=== PATIENT | male | born 1945 | race Caucasian/White ===

== ENCOUNTER 2016-12-29 20:54 | Emergency (ER) | payer MEDICARE ==
[2016-12-29 21:10] VITALS: BP 140/90; PULSE 104; RESP 16; TEMP 97.6
[2016-12-29] MEDS ORDERED: IBUPROFEN 800 MG TAB PO STA (21:30)
--- NOTE | 2016-12-29 21:40 | ED ---
Lower Extremity Injury HPI - General Chief Complaint: Extremity Injury, Lower Stated Complaint: Fall-knee injury Time Seen by Provider: 12/29/16 21:16 Source: patient Mode of arrival: wheelchair Limitations: no limitations - History of Present Illness Initial Comments: 71-year-old male presents to the ER with his after sustaining a trip and fall outdoors while he was changing a filter in his outdoor water curtain. He states that he had carried a filter which had dropped some water on a mossy area in which he then slipped and believes he twisted his knee. He was then unable to bear weight on it. He reports that there is no injury to the foot ankle or hip on that side. He states that the pain is very localized on the outside of his knee up through his thigh. He states that he did not take anything for pain yet he came to the ER after not being able to bear weight on it. He did have a brace at home from a prior knee injury that he wore to help with immobilization. He also did apply ice on his way to the ER today. He states that no symptoms precipitated the fall and denies any dizziness, nausea, vomiting, blurry vision, chest pain, shortness of breath, diarrhea. Patient also denies any head trauma or loss of consciousness. He denies injury to any other areas of the body. - Related Data Home Medications Medication Instructions Recorded Confirmed Aspirin EC [Ecotrin Low Dose] 81 mg PO BID 12/29/16 12/29/16 Atorvastatin [Lipitor] 80 mg PO DAILY 12/29/16 12/29/16 Cholecalciferol [Vitamin D3] 1,000 unit PO DAILY 12/29/16 12/29/16 Famotidine 20 mg PO HS 12/29/16 12/29/16 Glimepiride [Amaryl] 4 mg PO AC-BID 12/29/16 12/29/16 Insulin Glargine,Hum.rec.anlog 22 unit SQ DAILY 12/29/16 12/29/16 [Lantus Solostar] Metoprolol Tartrate [Lopressor] 50 mg PO BID 12/29/16 12/29/16 Multivitamins, Thera [Multivitamin 1 tab PO DAILY 12/29/16 12/29/16 (formulary)] Ramipril [Altace] 5 mg PO HS 12/29/16 12/29/16 metFORMIN HCL 1,000 mg PO AC-BID 12/29/16 12/29/16 Allergies Allergy/AdvReac Type Severity Reaction Status Date / Time No Known Allergies Allergy Verified 12/29/16 21:47 Review of Systems ROS Statement: Those systems with pertinent positive or pertinent negative responses have been documented in the HPI. ROS Other: All systems not noted in ROS Statement are negative. Past Medical History Past Medical History: Diabetes Mellitus, Hyperlipidemia, Hypertension History of Any Multi-Drug Resistant Organisms: None Reported Past Surgical History: Cholecystectomy, Coronary Bypass/CABG, Heart Catheterization With Stent Past Psychological History: No Psychological Hx Reported Smoking Status: Never smoker Past Alcohol Use History: Occasional Past Drug Use History: None Reported General Exam Limitations: no limitations General appearance: alert, in no apparent distress Head exam: Present: atraumatic, normocephalic Eye exam: Present: normal appearance, PERRL, EOMI Pupils: Present: normal accommodation Respiratory exam: Present: normal lung sounds bilaterally Cardiovascular Exam: Present: regular rate, normal rhythm Extremities exam: Present: other (Left lower extremity: Patient is not able to passively move his left knee however actively I am able to produce full range of motion with moderate discomfort. He has negative valgus and varus stress tests. Anterior and posterior drawer tests were negative. No ecchymosis or edema. No evidence of effusion. Very minor abrasions on the anterior pham and knee. Patient has point tenderness on the lateral aspect of the knee up to the quadriceps muscle. No pain in the hip or the ankle. Full range of motion in these joints are able to be elicited.) Neurological exam: Present: alert, oriented X3, CN II-XII intact, other (Unable to bear weight on his left leg secondary to pain.) Psychiatric exam: Present: normal affect, normal mood Skin exam: Present: warm, dry Course Vital Signs 12/29/16 21:06 Temperature 97.6 F Pulse Rate 104 H Respiratory 16 Rate Blood Pressure 140/90 O2 Sat by Pulse 95 Oximetry Medical Decision Making - Medical Decision Making A 71-year-old male presents to the ER after sustaining a fall outside. He states that there was a twisting motion and that the injury did not come from a direct blow to the knee. He states that he has localized pain on the lateral aspect of the knee. Based on inability to bear weight and point tenderness we' ll recommend x-ray to evaluate for fracture and possible avulsion. X-ray showed negative for any acute processes including fracture, joint effusion, avulsion. There do appear to be some chronic changes. Discussed with the patient that x-rays do not show ligament tendon or meniscus injuries and will recommend ortho follow-up. Patient was given Motrin 800 to help with inflammation and discomfort in the ER. Patient deferred any prescription pain medication and will take [id number] Tylenol and Motrin at home to help control pain. Knee immobilizer was placed back on the patient he was encouraged to use crutches, walker or cane at home in which she has all 3 already. Discussed fall risk with having knee pain injury. Recommend rest ice compression and elevation. All questions were answered. Patient agreeable with treatment plan and voiced understanding. - Radiology Data Radiology results: report reviewed (No acute processes including fracture, avulsion. 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 To return to the ER with any worsening or new symptoms or concerns. Referrals: Marek Wright MD [Primary Care Provider] - 1-2 days Trav Cottrell MD [STAFF PHYSICIAN] - 1-2 days Time of Disposition: 22:25
--- NOTE | 2016-12-29 22:01 | XR ---
EXAMINATION TYPE: XR knee complete LT DATE OF EXAM: 12/29/2016 9:57 PM COMPARISON: NONE HISTORY: Knee pain TECHNIQUE: 3 views FINDINGS: I see no fracture nor dislocation. There is calcification above the patella. There is spurr ing on the patella. There is vascular calcification. 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 No fracture. Mild degenerative spurring.
== END 2016-12-29 23:00 | disposition home or self-care (01) ==
LOC: EC 20:54
DX: S83.92XA Sprain of unspecified site of left knee, initial encounter (principal); E11.9 Type 2 diabetes mellitus without complications; E78.5 Hyperlipidemia, unspecified; I10 Essential (primary) hypertension; Z79.82 Long term (current) use of aspirin; Z79.899 Other long term (current) drug therapy; Z79.4 Long term (current) use of insulin; W01.0XXA Fall on same level from slipping, tripping and stumbling without subsequent striking against object, initial encounter
CPT/HCPCS: 99283

== ENCOUNTER → 2018-05-28 | Outpatient (CLI) | payer MEDICARE ==
[2018-05-28 11:13] LABS: HCT 45.2 % (39.0-53.0); HGB 15.3 gm/dL (13.0-17.5); MCH 29.9 pg (25.0-35.0); MCHC 33.9 g/dL (31.0-37.0); MCV 88.2 fL (80.0-100.0); Mean Platelet Volume 7.3; Platelet Count 222 k/uL (150-450); RBC 5.12 m/uL (4.30-5.90); RDW 14.3 % (11.5-15.5); WBC 6.1 k/uL (3.8-10.6)
[2018-05-28 11:22] LABS: Anion Gap 8 mmol/L; Blood Urea Nitrogen 16 mg/dL (9-20); Carbon Dioxide 27 mmol/L (22-30); Chloride 106 mmol/L (98-107); Potassium 4.9 mmol/L (3.5-5.1); Sodium 141 mmol/L (137-145)
== END | disposition home or self-care (01) ==
LOC: LABPAT 09:36
PROVIDERS: ATTEND Internal Medicine Interventional Cardiology
DX: Z01.812 Encounter for preprocedural laboratory examination (principal); I25.2 Old myocardial infarction; I10 Essential (primary) hypertension; E78.2 Mixed hyperlipidemia; R94.39 Abnormal result of other cardiovascular function study
CPT/HCPCS: 36415; 80051; 82565; 84520; 85027

== ENCOUNTER 2018-06-09 09:32 | Day surgery (SDC) | payer MEDICARE ==
[2018-06-03 10:59] VITALS: BMI 25.6
[~2018-06-09 09:32] MED LIST: ALPRAZolam 0.25 MG TAB PO PRN; ALPRAZolam 0.5 MG TAB PO PRN; ASPIRIN 325 MG TAB PO STA; ATORVASTATIN 80 MG TAB PO STA; NITROGLYCERIN SL TABS 0.4 MG TAB SUBLINGUAL PRN; SODIUM CHLORIDE 0.9% 1,000 ML in EMPTY BAG 1 BAG IV ONE
[2018-06-09 09:56] LABS: Glucose,Whole Blood 194 mg/dL (75-99)
[2018-06-09] MEDS ORDERED: diphenhydrAMINE 50 MG/ML 1 ML VIAL ONE (10:45)
[2018-06-09] MEDS ORDERED: MIDAZOLAM 2 MG/2 ML VIAL ONE (10:45)
[2018-06-09] MEDS ORDERED: diphenhydrAMINE 50 MG/ML 1 ML VIAL IVP ONE (11:03)
[2018-06-09] MEDS: MIDAZOLAM 2 MG/2 ML VIAL IVP ONE ×2 (11:03→11:10)
[2018-06-09] MEDS ORDERED: LIDOCAINE 1% INJ 10MG/ML (20 ML MDV) SQ ONE (11:10)
[2018-06-09] MEDS ORDERED: IOPAMIDOL-370 100ML BTL INJ ONE ×2 (11:35→12:22)
[2018-06-09] MEDS ORDERED: BIVALIRUDIN 250 MG in SODIUM CHLORIDE 0.9% 50 ML IV ONE ×2 (11:38→12:37)
[2018-06-09] MEDS ORDERED: BIVALIRUDIN BOLUS 250 MG/50 ML IV ONE (11:38)
[2018-06-09] MEDS: NITROGLYCERIN 1000MCG/10ML SYRINGE INTRACORON ONE ×2 (12:31→12:38)
[2018-06-09] MEDS ORDERED: IOPAMIDOL-370 50ML BTL INJ ONE (12:40)
[2018-06-09] MEDS ORDERED: MORPHINE SULFATE 4 MG/ML SYRINGE ONE (12:43)
[2018-06-09] MEDS ORDERED: MORPHINE SULFATE 4 MG/ML SYRINGE IVP ONE (12:44)
[2018-06-09] MEDS ORDERED: TICAGRELOR 90 MG TAB ONE (12:45)
[2018-06-09] MEDS ORDERED: TICAGRELOR 90 MG TAB PO ONE (12:46)
[2018-06-09] MEDS ORDERED: NITROGLYCERIN SL TABS 0.4 MG TAB SUBLINGUAL PRN (12:53)
[2018-06-09] MEDS ORDERED: MAG HYDROX/AL HYDROX/SIMETH 30 ML CUP PO PRN (12:53)
[2018-06-09] MEDS ORDERED: ATROPINE SULFATE 0.1 MG/ML 10ML SYRINGE IV PRN (12:53)
[2018-06-09] MEDS ORDERED: ZOLPIDEM 5 MG TAB PO PRN (12:53)
[2018-06-09] MEDS ORDERED: RX INFO: IV CONTRAST WAS GIVEN 1 EACH MISC MISCELLANE PRN (12:53)
[2018-06-09] MEDS: SODIUM CHLORIDE 0.9% 1,000 ML IV SCH (14:00)
--- NOTE | 2018-06-09 16:19 | CC ---
CARDIAC CATHETERIZATION REPORT DATE OF PROCEDURE: PROCEDURE: 1. Left heart catheterization, coronary angiography and selective injection of bypass grafts. 2. Percutaneous transluminal coronary angioplasty and stenting of a totally occluded second obtuse marginal branch of circumflex. Two drug-eluting stents were deployed. Moderate conscious sedation time was 107 minutes. CLINICAL INFORMATION: Mr. Marques Bassett is a 72-year-old gentleman with a known history of type 2 diabetes, hypertension, hyperlipidemia, CAD with a previous anterior as well as inferior ID. In 1990 he underwent aortocoronary bypass surgery with a ACOSTA to LAD and a vein graft to the diagonal. Subsequently he had inferior ID, underwent stenting of RCA and later on had circumflex marginal stenting performed in 2005. The second obtuse marginal in the midportion was stented. He did well for several years, but in 2007 I performed stenting of the distal left main and proximal circumflex as well as the proximal portion of the second obtuse marginal branch of circumflex. At that time the first obtuse marginal was jailed and had still a decent flow with a significant stenosis, but this was not addressed. He did well until recently and had a significantly abnormal stress test with lateral wall ischemia and therefore was advised a repeat cardiac catheterization and possible intervention. PROCEDURE NOTE: Under local anesthesia and strict aseptic precautions, a 6-Ecuadorean introducer was placed in the right femoral artery. Using a standard left Kayla and a Gera catheter , I performed selective coronary angiography of the sioux coronary arteries and also the left internal mammary artery graft. Using an AR2 catheter, I performed selective coronary angiography of the vein graft to the diagonal. Subsequently, using a pigtail, I checked LV pressures. I noted that he had a significant lesion in the circumflex marginal which was stented before, and this was totally occluded. I performed intervention of this vessel in the same setting. PCI PROCEDURE DETAILS: I used a standard left Kayla guide catheter to cannulate the left coronary artery. I used a Whisper straight wire and I crossed the total occlusion after some manipulation. I made sure I was in the true lumen. Wire was kept distally. I tried to use a 2.5 balloon without success. I then used a 1.56 mm balloon, and with this I was able to cross the total occlusion. I gave multiple inflations with this small balloon and then I switched over to a 2.5 caliber 12 mm Trek balloon. With this I gave multiple inflations within the total occluded segment of the second obtuse marginal. I then deployed a 12 mm 2.5 caliber stent distal to the total occlusion and telescoped another 18 mm stent into the total occlusion as well as into the previously placed stent. Basically, the mid portion that was stented as well as an ostial portion of the circumflex marginal that was stented were both connected with 2 new stents; 2.5 caliber stents were used. I used then a 2.75 caliber NC Trek balloon and I gave high inflations up to 16 atmospheres. The patient had an excellent angiographic result. There was a remarkably good angiographic appearance and flow. I then made one attempt to cross the first obtuse marginal which was jailed, but I could not advance the balloon. I did not persist since there was a TANI-3 flow in the obtuse marginal branch of circumflex. Excellent angiographic result was achieved. The sheath was taken out and a Perclose device used to secure hemostasis and he was sent to the room in a stable condition. The patient received 180 mg of Brilinta and he also received Angiomax bolus and infusion as per protocol. Results were discussed with the patient's family , and I expect he will be discharged tomorrow if he remains stable. CARDIAC CATHETERIZATION FINDINGS: RIGHT CORONARY ARTERY: This vessel is totally occluded and seen as a stump with a very limited antegrade flow. This is known to be a total occlusion from a previous cardiac catheterization. LEFT MAIN CORONARY ARTERY: Short patent vessel that bifurcates into LAD and circumflex. No significant disease in the left main. The distal portion of the left main and the proximal circumflex that was stented is widely patent. LEFT ANTERIOR DESCENDING CORONARY ARTERY: This vessel is totally occluded, seen as a stump. LEFT POSTERIOR CIRCUMFLEX CORONARY ARTERY: The first obtuse marginal was jailed with an ostial stent and there is still decent flow, but there is a lesion of 70% to 80% in the first obtuse marginal. Small-caliber vessel of about 2.25 mm diameter, unchanged however from a previous study of 2007. The second obtuse marginal which was stented in the proximal and mid portion is now totally occluded without any antegrade flow. The continuation of circumflex in the AV groove and distal posterolateral branch are free of significant disease. There is a fair network of collaterals going to the distal RCA as well from the circumflex system. The obtuse marginal branch which was stented before, which is a second obtuse marginal, is now totally occluded and is 100% occluded with some calcification. LEFT INTERNAL MAMMARY ARTERY GRAFT TO LAD: This graft is widely patent with a decent flow. No significant disease is noted in the LAD and it runs all the way to the apex and supplies a sizable amount of myocardium. No significant disease is noted in the entire LAD system. SAPHENOUS VEIN GRAFT TO THE DIAGONAL BRANCH OF LAD: This graft has no significant disease. This graft is large in caliber. There is a mismatch in size but anastomosis is free of significant disease. The diagonal branch is free of significant disease and it also goes back and fills the LAD, which sees some competitive flow. There is mild disease in the graft, but no significant stenosis is noted. This patient has a total occlusion of second obtuse marginal that was dilated. The two grafts, the ACOSTA and a vein graft to the diagonal, are patent. RCA is totally occluded. Filling pressures are acceptable. I proceeded to perform intervention of the second obtuse marginal branch of circumflex. PCI PROCEDURE RESULTS: Excellent angiographic result was achieved. Two drug-eluting stents were deployed. Results were discussed with the patient and family, and I expect he will be discharged tomorrow. A Perclose device was used to secure hemostasis. MMODL / IJN: [id number] / PATRIA
[2018-06-09 17:13] LABS: Glucose,Whole Blood 151 mg/dL (75-99)
[2018-06-09] MEDS: GLIMEPIRIDE 4 MG TAB PO SCH (17:27)
[2018-06-09] MEDS: METOPROLOL TARTRATE 50 MG TAB PO SCH (19:45)
[2018-06-09] MEDS ORDERED: FAMOTIDINE 20 MG TAB PO SCH (21:00)
[2018-06-09] MEDS ORDERED: LISINOPRIL 20 MG TAB PO SCH (21:00)
[2018-06-10] MEDS: SODIUM CHLORIDE 0.9% 1,000 ML IV SCH (03:56)
[2018-06-10 04:16] LABS: Basophils % (A) 1 %; Eosinophils # (A) 0.2 k/uL (0-0.7); Eosinophils % (A) 2 %; HCT 43.6 % (39.0-53.0); HGB 14.7 gm/dL (13.0-17.5); Lymphocytes # (A) 1.2 k/uL (1.0-4.8); Lymphocytes % (A) 16 %; MCH 30.4 pg (25.0-35.0); MCHC 33.8 g/dL (31.0-37.0); MCV 89.9 fL (80.0-100.0); Mean Platelet Volume 7.4; Monocytes # (A) 0.5 k/uL (0-1.0); Monocytes % (A) 7 %; Neutrophils # (A) 5.2 k/uL (1.3-7.7); Neutrophils % (A) 71 %; Platelet Count 190 k/uL (150-450); RBC 4.85 m/uL (4.30-5.90); RDW 14.1 % (11.5-15.5); WBC 7.3 k/uL (3.8-10.6)
[2018-06-10 04:24] LABS: Anion Gap 6 mmol/L; Blood Urea Nitrogen 16 mg/dL (9-20); Calcium 9.3 mg/dL (8.4-10.2); Carbon Dioxide 26 mmol/L (22-30); Chloride 107 mmol/L (98-107); Glucose 120 mg/dL (74-99); Potassium 4.1 mmol/L (3.5-5.1); Sodium 139 mmol/L (137-145)
[2018-06-10] MEDS: GLIMEPIRIDE 4 MG TAB PO SCH (06:47)
[2018-06-10 06:52] LABS: Glucose,Whole Blood 141 mg/dL (75-99)
[2018-06-10] MEDS: METOPROLOL TARTRATE 50 MG TAB PO SCH (07:54)
[2018-06-10 08:32] VITALS: BP 126/65; PULSE 72; RESP 18; TEMP 98
[2018-06-10] MEDS ORDERED: CHOLECALCIFEROL 1,000 UNIT TAB PO SCH (09:00)
[2018-06-10] MEDS ORDERED: ASPIRIN 81 MG PO SCH ×2 (09:00)
[2018-06-10] MEDS ORDERED: MULTIVITAMINS, THERA 1 EACH TAB PO SCH (09:00)
[2018-06-10] MEDS ORDERED: ATORVASTATIN 80 MG TAB PO SCH (09:00)
[2018-06-10] MEDS ORDERED: INSULIN DETEMIR 100 UNIT/ML 10 ML VIAL SQ SCH (09:00)
[2018-06-10] MEDS ORDERED: TICAGRELOR 90 MG TAB PO SCH (09:00)
--- NOTE | 2018-06-10 09:32 | DS ---
DISCHARGE SUMMARY DATE OF ADMISSION: 06/09/2018. DATE OF DISCHARGE: 06/10/2018. DIAGNOSES: 1. Unstable angina. 2. Hypertension. 3. Type 2 diabetes. 4. History of prior aortocoronary bypass surgery and multivessel PCI. Mr. Marques Bassett was brought in electively for a cardiac cath in view of an abnormal stress test. Cardiac cath revealed that his 2 grafts, one was a ACOSTA artery to LAD, the other was a vein graft to the diagonal were both patent. He had progression of disease in the obtuse marginal branch of circumflex, which was now totally occluded. He had stenting of this performed initially in 1995 in the midportion and in the proximal portion in 2007. The ostium of the circumflex and distal left main were widely patent. RCA was totally occluded. Collaterals are coming from the left system. I performed intervention of the totally occluded circumflex marginal and placed two drug-eluting stents with excellent angiographic result. PROCEDURE: Postprocedure course was uneventful. He was evaluated by me this morning. His blood pressure is 120/70, pulse rate is 70 per minute. S1-S2 heard normally. Lungs are clear. Abdomen and lower extremity exam is unchanged. Right groin is clean and dry with excellent hemostasis. EKG revealed sinus mechanism with inferior nondiagnostic Q-waves. Patient is known to have a prior inferior MN. His laboratory data were excellent. I reviewed with him all the discharge instructions including diet, activity and medications. He will go home on the same medications except his aspirin will be reduced from 81 mg b.i.d. to once a day and I am adding Brilinta 90 mg b.i.d. These prescriptions were provided and patient will be discharged today and I will see him in the office on Friday at 4 pm. PROCEDURES PERFORMED ON THIS ADMISSION:: 1. Coronary angiography and selective injection of bypass graft. 2. PTCA and stenting of second obtuse marginal branch of circumflex which was totally occluded with two drug-eluting stents and excellent angiographic result was achieved. MMODL / IJN: [id number] /
--- NOTE | 2018-06-11 18:06 | CONS ---
CONSULTATION CHIEF COMPLAINT: Abnormal stress echo. HISTORY OF PRESENT ILLNESS: This is another admission for this 72-year-old white male has history of coronary artery disease, diabetes and hypertension, who has been very fastidious about taking care of his disease. He recently went in and had a routine stress study which indicated reversible wall abnormality. He has been having absolutely no chest pain. The only complaints that he makes is that, in retrospect, he has been feeling more fatigued. REVIEW OF SYSTEMS: He has had no TIAs, neurologic problems, change in vision or hearing, chest pain, palpitations, orthopnea, uncontrolled hypertension, abdominal pain, melena, hematochezia, jaundice, renal failure, etc. Past medical history, family history personal and social histories can all be found in his admitting summary. PHYSICAL EXAMINATION: Blood pressure is 142/81 with a pulse of 59, respirations of 10. He is afebrile. In general, he appeared well developed, well nourished, no acute distress. Skin color is normal. Skin is warm, dry. Head, ears, eyes, nose, mouth, and throat were normal and carotids normal. Chest is clear. Cardiac exam is normal, sinus rhythm and no murmurs or extra sounds. Abdomen is soft, nontender without visceromegaly or masses. Extremities: Normal. Neurologic was intact. IMPRESSION: 1. Abnormal stress echo. 2. Type 2 diabetes mellitus. 3. Coronary artery disease. 4. Atherosclerotic cardiovascular disease. 5. Hyperlipidemia. RECOMMENDATIONS: None at this time. Pending the outcome of his study, he may require medication changes. MMODL / IJN: [id number] /
== END 2018-06-10 08:32 | disposition home or self-care (01) ==
LOC: CATHCVL 09:32 → 3SCARD 13:05 → CATHCVL 06-10 08:32
PROVIDERS: ATTEND Internal Medicine Interventional Cardiology
DX: I25.110 Atherosclerotic heart disease of native coronary artery with unstable angina pectoris (principal); E11.9 Type 2 diabetes mellitus without complications; E78.2 Mixed hyperlipidemia; I10 Essential (primary) hypertension; R94.39 Abnormal result of other cardiovascular function study; I25.2 Old myocardial infarction; Z95.1 Presence of aortocoronary bypass graft; T82.855A Stenosis of coronary artery stent, initial encounter; I25.82 Chronic total occlusion of coronary artery; Z79.82 Long term (current) use of aspirin; Z79.4 Long term (current) use of insulin; Z79.899 Other long term (current) drug therapy; Z95.5 Presence of coronary angioplasty implant and graft
CPT/HCPCS: 93459; 80048; 85025; C9604; C1769 ×3; C1887; C1725 ×5; C1894; C1760; C1874; J2250; J2270; J1200; J2001; J0583; Q9967 ×2

== ENCOUNTER → 2018-06-15 | Outpatient (CLI) | payer MEDICARE ==
[2018-06-16 03:53] LABS: Anion Gap 7.3 mmol/L (4.00-12.00); Calcium 9.6 mg/dL (8.7-10.3); Carbon Dioxide 26.7 mmol/L (21.6-31.8); Potassium 4.5 mmol/L (3.5-5.5)
== END | disposition home or self-care (01) ==
LOC: LABWHC1 17:13
PROVIDERS: ATTEND Internal Medicine Interventional Cardiology
DX: I25.10 Atherosclerotic heart disease of native coronary artery without angina pectoris (principal); E11.9 Type 2 diabetes mellitus without complications
CPT/HCPCS: 36415; 80048

== ENCOUNTER → 2019-09-13 | Outpatient (CLI) | payer MEDICARE ==
[2019-09-13 16:18] LABS: Chol/HDL Ratio 4.71; LDL Cholesterol,Calculated 91.6 mg/dL (0.0-131.0); VLDL Calculation 34.4 mg/dL (5.00-40.00)
== END | disposition home or self-care (01) ==
LOC: LABWHC1 09:23
PROVIDERS: ATTEND Internal Medicine Interventional Cardiology
DX: I25.10 Atherosclerotic heart disease of native coronary artery without angina pectoris (principal); E78.5 Hyperlipidemia, unspecified
CPT/HCPCS: 36415; 80061; 82550; 84450; 84460

== ENCOUNTER → 2020-09-06 | Outpatient (CLI) | payer MEDICARE | END | disposition home or self-care (01) | LOC: RADCTMAIN 07:25 | PROVIDERS: ATTEND Urology | DX: C61 Malignant neoplasm of prostate (principal) | CPT/HCPCS: 82565; 84520 ==

== ENCOUNTER → 2020-09-06 | Outpatient (CLI) | payer MEDICARE ==
--- NOTE | 2020-09-06 10:11 | CT ---
EXAMINATION TYPE: CT abdomen pelvis w con DATE OF EXAM: 09/06/2020 COMPARISON: CT abdomen and pelvis April 14, 2013 HISTORY: Prostate cancer CT DLP: 1325 mGycm, Automated Exposure Control for Dose Reduction was Utilized. CONTRAST: CT scan of the abdomen and pelvis is performed with oral and with IV Contrast, patient injected with 100 mL of Isovue 300. FINDINGS: LUNG BASES: Mild bibasilar linear scarring and/or atelectasis. Partial visualization of inferior ster nal wires. LIVER/GB: Interval cholecystectomy. Visualized liver heterogeneously hypodense consistent with diffus e fatty infiltration. Punctate hypodense lesion left hepatic lobe image 16 too small to further ciaran cterize PANCREAS: No significant abnormality is seen. SPLEEN: No significant abnormality is seen. ADRENALS: No significant abnormality is seen. KIDNEYS: Symmetric cortical medullary uptake and excretion without hydronephrosis seen bilaterally. P rominent simple appearing central parapelvic cysts redemonstrated bilaterally. Bladder shows suboptim al distention with moderate concentric wall thickening. BOWEL: Oral contrast reaches level of the cecum. No suspicious small or large bowel dilatation. Moder ate prominence of fecal material in the right colon. Some scattered colonic diverticula. No CT eviden ce for acute diverticulitis. PROSTATE/SEMINAL VESICLES: Slightly enlarged prostate gland bulging on bladder base with central calc ification. LYMPH NODES: No greater than 1cm abdominal or pelvic lymph nodes are appreciated. OSSEOUS STRUCTURES: Bilateral pars defect L5 level redemonstrated. New slight grade 1 anterolisthesis L5 on S1. Moderate disc space narrowing and vacuum disc phenomenon. There is fairly moderate narrowi ng and mild to moderate spurring in both hip joints. OTHER: There is redemonstration of calcific focus in the right pelvis now measuring 2.2 cm with surro unding soft tissue slightly larger from prior seen image [address] currently and on prior CT. There is a pos terior ovoid 1.3 cm calculus axial image 79 redemonstrated that is stable. Lesions of uncertain etiol ogy, they are presumed benign. Moderate to severe calcified plaque in the abdominal aorta extends int o branch vessels. IMPRESSION: Enlarged prostate consistent with BPH. Evidence of bladder outlet obstruction with modera te concentric wall thickening. No suspicious new mass or adenopathy to suggest metastatic neoplasm fr om prostate cancer.
--- NOTE | 2020-09-06 10:28 | XR ---
EXAMINATION TYPE: XR chest 2V DATE OF EXAM: 09/06/2020 COMPARISON: None INDICATION: Prostate cancer TECHNIQUE: Frontal and lateral views of the chest are obtained. FINDINGS: The heart size is normal. Sternotomy wires are present from prior CABG. The pulmonary vasculature is normal. The lungs are clear. Osseous structures are unremarkable. No suspicious lytic or sclerotic lesions a re identified. IMPRESSION: 1. No acute pulmonary process.
--- NOTE | 2020-09-06 13:19 | NM ---
EXAMINATION TYPE: NM bone scan whole body DATE OF EXAM: 09/06/2020 COMPARISON: NONE HISTORY: Prostate cancer Delayed whole-body scanning was performed following the injection of 25.3 mCi Tc 99m MDP. Images wer e acquired 3 hours post injection. FINDINGS: There is a focus of radiotracer accumulation within the region of the posterior right T6 pedicle. Met astatic lesion this level is not excluded. Additional punctate area is just lateral to the right post erior sacroiliac joint within the right iliac wing. There is some uptake within the costal vertebral junction of T7 on the left more likely related to de generative change. IMPRESSION: 1. Two foci of possible metastatic disease. This would include the medial right iliac wing in the reg ion of the right posterior T6 pedicle.
== END | disposition home or self-care (01) ==
LOC: RADXRMAIN 07:34
PROVIDERS: ATTEND Urology
DX: N40.0 Benign prostatic hyperplasia without lower urinary tract symptoms (principal); N32.0 Bladder-neck obstruction; N32.89 Other specified disorders of bladder; C61 Malignant neoplasm of prostate
CPT/HCPCS: 71046; 74177; 36415; 78306; A9503; Q9967

== ENCOUNTER 2020-10-19 07:22 | Day surgery (SDC) | payer MEDICARE ==
[2020-10-13 13:23] VITALS: BMI 25.0
--- NOTE | 2020-10-16 20:19 | P.GSHP ---
History of Present Illness H&P Date: 10/16/20 75 yo male with a G7 t2c ca p, 04/29 biopsies positive. Psa 7.6 Prostate size 18ml who has chosen ebrt +lhrh theray for his cancer. He has received 240 mg leupron He comes for [employer] prior to ebrt. - Constitutional Constitutional: Denies chills, Denies fever - EENT Eyes: denies blurred vision, denies pain Ears, nose, mouth and throat: Denies headache, Denies sore throat - Cardiovascular Cardiovascular: Denies chest pain, Denies shortness of breath - Respiratory Respiratory: Denies cough, Denies 7 - Gastrointestinal Gastrointestinal: Denies abdominal pain, Denies diarrhea, Denies nausea, Denies vomiting - Genitourinary (Female) Genitourinary: Denies dysuria, Denies hematuria - Genitourinary (Male) Genitourinary: Denies dysuria, Denies hematuria - Musculoskeletal Musculoskeletal: Denies myalgias - Integumentary Integumentary: Denies pruritus, Denies rash - Neurological Neurological: Denies numbness, Denies weakness - Psychiatric Psychiatric: Denies anxiety, Denies depression - Endocrine Endocrine: Denies fatigue, Denies weight change Past Medical History Past Medical History: Coronary Artery Disease (CAD), Cancer, Diabetes Mellitus, Hyperlipidemia, Hypertension, Myocardial Infarction ([place]), Prostate Disorder Additional Past Medical History / Comment(s): [place] x2. Prostate cancer Last Myocardial Infarction Date:: 1993 History of Any Multi-Drug Resistant Organisms: None Reported Past Surgical History: Cholecystectomy, Coronary Bypass/CABG, Heart Catheterization With Stent, Orthopedic Surgery Additional Past Surgical History / Comment(s): LEFT KNEE QUADRICEP REPAIR, FLORIAN CATARACTS, CABG X4 1987. PTCA w/ 9 stents. Past Anesthesia/Blood Transfusion Reactions: Previous Problems w/ Anesthesia Additional Past Anesthesia/Blood Transfusion Reaction / Comment(s): HARD TIME WAKING UP AFTER CHOLECYSTECTOMY Date of Last Stent Placement:: 06/09/2018 Smoking Status: Never smoker - Past Family History Mother Family Medical History: No Reported History Medications and Allergies Home Medications Medication Instructions Recorded Confirmed Type Atorvastatin [Lipitor] 80 mg PO DAILY 12/29/16 10/13/20 History Cholecalciferol [Vitamin D3] 5,000 unit PO DAILY 12/29/16 10/13/20 History Insulin Glargine,Hum.rec.anlog 60 unit SQ QAM 12/29/16 10/13/20 History [Lantus Solostar] Metoprolol Tartrate [Lopressor] 50 mg PO BID 12/29/16 10/13/20 History Multivitamins, Thera [Multivitamin 1 tab PO DAILY 12/29/16 10/13/20 History (formulary)] metFORMIN HCL 1,000 mg PO AC-BID 12/29/16 10/13/20 History ramipriL [Altace] 5 mg PO HS 12/29/16 10/13/20 History Aspirin [Adult Low Dose Aspirin EC] 81 mg PO DAILY #30 tablet.dr 06/10/18 10/13/20 Rx Clopidogrel [Plavix] 75 mg PO DAILY 10/13/20 10/13/20 History Cyanocobalamin (Vitamin B-12) 5,000 mcg PO DAILY 10/13/20 10/13/20 History [Vitamin B-12] Exenatide Microspheres [Bydureon 2 mg SQ MO 10/13/20 10/13/20 History Pen] Ezetimibe [Zetia] 10 mg PO HS 10/13/20 10/13/20 History Zinc 50 mg PO DAILY 10/13/20 10/13/20 History Allergies Allergy/AdvReac Type Severity Reaction Status Date / Time No Known Allergies Allergy Verified 10/13/20 12:53 Surgical - Exam - General well developed, well nourished, no distress - Eyes PERRL - ENT no hearing loss - Neck trachea midline - Respiratory normal expansion, normal respiratory effort - Cardiovascular Rhythm: regular - Abdomen Abdomen: soft, non tender - Genitourinary normal penis with no external lesions, testicles present - Integumentary no rash, no growths - Neurologic normal coordination, normal sensation - Musculoskeletal normal gait, normal posture - Psychiatric oriented to time, oriented to person, oriented to place, speech is normal, memory intact Assessment and Plan Assessment: Impression: t2c n0mo g7 cap Plan: [facility] periprostatic injection
[~2020-10-19 07:22] MED LIST changes: -ALPRAZolam 0.25 MG TAB PO PRN; -ALPRAZolam 0.5 MG TAB PO PRN; -ASPIRIN 325 MG TAB PO STA; -ATORVASTATIN 80 MG TAB PO STA; +HYDROmorphone 0.5 MG/0.5 ML SYRINGE IVP PRN; +LACTATED RINGERS 1,000 ML IV SCH; +LIDOCAINE 1% (10MG/ML) FOR IV START INTRADERMA PRN; -NITROGLYCERIN SL TABS 0.4 MG TAB SUBLINGUAL PRN; +ONDANSETRON 4 MG/2 ML VIAL IVP PRN; -SODIUM CHLORIDE 0.9% 1,000 ML in EMPTY BAG 1 BAG IV ONE
[2020-10-19 08:10] LABS: Glucose,Whole Blood 206 mg/dL (75-99)
[2020-10-19] MEDS ORDERED: INSULIN ASPART (NovoLOG) 100 UNIT/ML VIAL SQ ONE (08:16)
[2020-10-19] MEDS ORDERED: DEXAMETHASONE SOD PHOSPHATE 4 MG/ML 1 ML VIAL IVP ONE (08:16)
[2020-10-19] MEDS ORDERED: MIDAZOLAM 2 MG/2 ML VIAL ONE (08:52)
[2020-10-19] MEDS ORDERED: PROPOFOL 10 MG/ML 20 ML VIAL IV ONE (08:52)
[2020-10-19] MEDS ORDERED: fentaNYL (PF) 50 MCG/ML 2 ML AMP ONE (08:52)
[2020-10-19] MEDS ORDERED: LIDOCAINE 2% INJ 20 MG/ML SQ ONE ×2 (09:11)
[2020-10-19 09:37] VITALS: RESP 16; TEMP 98
--- NOTE | 2020-10-19 09:37 | P.OP ---
Date of Procedure: 10/19/20 Preoperative Diagnosis: Adenocarcinoma of the prostate Postoperative Diagnosis: Same Procedure(s) Performed: [employer] Implant Anesthesia: JOSÉA Surgeon: Jake Gilbert Estimated Blood Loss (ml): 5 IV fluids (ml): 700 Pathology: none sent Condition: stable Disposition: PACU Indications for Procedure: 75 yo male with a [place] 7, [id number] prostate cancer, 9 of 12 biopsies positive. PSA 7.6 Prostate size 18ml. He has chosen to be treated with ADT and radiation therapy. He comes for [employer] prior to EBRT. Operative Findings: 8 mm separation created between prostate and rectum. Description of Procedure: The patient was taken to the operating room and placed in the dorsolithotomy position, with his legs supported in Jasen stirrups. The external genitalia was prepped and draped sterilely. The Bruel and Kjaer transrectal ultrasound probe was placed intrarectally. The prostate was imaged. The probe was then placed within the stabilizing stand. A spinal needle was advanced under ultrasonic guidance to the level of the urogenital diaphragm, and lidocaine was used to infiltrate the tissues as the needle was withdrawn. Next, the [employer] needle was passed through the midline of the perineum, 1-2 cm anterior to the anal opening. The needle was slowly advanced under ultrasonic guidance until the needle tip was located within the fat plane between the prostate and rectum, at the level of the mid prostate gland. The needle was confirmed to be midline on the axial imaging. A small amount of normal saline was injected for hydrodissection. Next, the [employer] components were mixed and loaded into the Y connector per protocol. The Y connector was then connected to the needle, and the components were injected slowly over a course of approximately 12 seconds. A total of 10 ml was injected. 8 mm distance was created between the prostate and rectum, as desired. It should be noted that at no point was there any concern of rectal perforation. The needle was withdrawn, as well as the transrectal ultrasound probe, and the procedure was terminated. The patient tolerated the procedure well and was taken to the recovery room in stable condition.
[2020-10-19 09:42] LABS: Glucose,Whole Blood 156 mg/dL (75-99)
[2020-10-19 10:32] VITALS: BP 133/81; PULSE 80
== END 2020-10-19 11:01 | disposition home or self-care (01) ==
LOC: OR 07:22
PROVIDERS: ATTEND Urology
DX: C61 Malignant neoplasm of prostate (principal); I25.10 Atherosclerotic heart disease of native coronary artery without angina pectoris; I10 Essential (primary) hypertension; E11.9 Type 2 diabetes mellitus without complications; E78.5 Hyperlipidemia, unspecified; I25.2 Old myocardial infarction; Z90.49 Acquired absence of other specified parts of digestive tract; Z95.1 Presence of aortocoronary bypass graft; Z95.5 Presence of coronary angioplasty implant and graft; Z98.890 Other specified postprocedural states; Z79.02 Long term (current) use of antithrombotics/antiplatelets; Z79.82 Long term (current) use of aspirin; Z79.4 Long term (current) use of insulin; Z79.899 Other long term (current) drug therapy
CPT/HCPCS: 55874; J2001; J2250; J1100; J0690; J2405; J3010; J2704

== ENCOUNTER → 2020-10-26 | Outpatient (CLI) | payer MEDICARE ==
--- NOTE | 2020-10-26 20:08 | CT ---
EXAMINATION TYPE: CT thoracic spine wo con DATE OF EXAM: 10/26/2020 COMPARISON: Whole body bone scan September 06, 2020 HISTORY: Prostate cancer. CT DLP: 879.8 mGycm Automated exposure control for dose reduction was used. FINDINGS: Corresponding to recent bone scan there is suspicious 1.5 cm sclerotic focus in the right T6 vertebra coronal image 36 and sagittal image 30. Fairly moderate to severe multilevel anterior and lateral sp urring. No additional suspicious sclerotic lesions clearly seen. Vertebral body heights and disc spac e heights fairly well maintained. Spinal canal is preserved. Significant [place] coronary artery calcification. Post-CABG changes are present. There is azygos lobe /fissure. There is mild linear scarring and/or atelectasis posteriorly in the right lower lobe. There is suspected 5 mm right lower lobe nodule coronal image 46 posteriorly partially imaged. Just under 1.0 cm calcification posterior to the liver axial image 102 favors benign calcified lymph node. Mild calcified plaque of aorta. IMPRESSION: Suspicious round 1.5 cm sclerotic lesion corresponds to bone scan. Osseous metastatic dis ease cannot be excluded and must be considered.
== END ==
LOC: RADCTMAIN 16:24
PROVIDERS: ATTEND Radiology Radiation Oncology
DX: C61 Malignant neoplasm of prostate (principal)
CPT/HCPCS: 72128

== ENCOUNTER → 2021-01-23 | Outpatient (CLI) | payer MEDICARE | END | disposition home or self-care (01) | LOC: LABWHC1 10:42 | PROVIDERS: ATTEND Radiology Radiation Oncology | DX: C77.5 Secondary and unspecified malignant neoplasm of intrapelvic lymph nodes (principal); C61 Malignant neoplasm of prostate; Z79.818 Long term (current) use of other agents affecting estrogen receptors and estrogen levels | CPT/HCPCS: 36415; 84153 ==

== ENCOUNTER → 2021-05-24 | Outpatient (CLI) | payer MEDICARE | END | disposition home or self-care (01) | LOC: LABWHC1 09:58 | PROVIDERS: ATTEND Radiology Radiation Oncology | DX: C77.5 Secondary and unspecified malignant neoplasm of intrapelvic lymph nodes (principal); C61 Malignant neoplasm of prostate; Z79.818 Long term (current) use of other agents affecting estrogen receptors and estrogen levels | CPT/HCPCS: 36415; 84153 ==

== ENCOUNTER → 2021-11-27 | Outpatient (CLI) | payer MEDICARE | END | disposition home or self-care (01) | LOC: LABWHC1 13:48 | PROVIDERS: ATTEND Radiology Radiation Oncology | DX: C61 Malignant neoplasm of prostate (principal); C77.5 Secondary and unspecified malignant neoplasm of intrapelvic lymph nodes; Z79.818 Long term (current) use of other agents affecting estrogen receptors and estrogen levels; Z92.3 Personal history of irradiation | CPT/HCPCS: 36415; 84153 ==

== ENCOUNTER → 2022-06-19 | Outpatient (CLI) | payer MEDICARE | END | disposition home or self-care (01) | LOC: LABWHC1 11:14 | PROVIDERS: ATTEND Radiology Radiation Oncology | DX: Z08 Encounter for follow-up examination after completed treatment for malignant neoplasm (principal); C77.5 Secondary and unspecified malignant neoplasm of intrapelvic lymph nodes; Z85.46 Personal history of malignant neoplasm of prostate; C61 Malignant neoplasm of prostate; Z92.3 Personal history of irradiation; Z79.818 Long term (current) use of other agents affecting estrogen receptors and estrogen levels; R35.1 Nocturia | CPT/HCPCS: 36415; 84153 ==

== ENCOUNTER → 2022-07-19 | Outpatient (CLI) | payer MEDICARE ==
--- NOTE | 2022-07-21 10:23 | PE ---
EXAMINATION TYPE: PET CT fusion skull to thigh DATE OF EXAM: 07/19/2022 CLINICAL INDICATION:Male, 76 years old with history of Z08 encounter for follow up after tx malignant neoplasm; TECHNIQUE: Following the intravenous administration of 5.2 mCi of Ga-68 Illuccix (PSMA), whole body images are performed from the skull base to the midthigh. Images are reviewed on the computer in th e coronal, axial, and sagittal planes. Reconstructed rotating images are created on independent work station and reviewed on the computer. A non-contrast CT is performed in conjunction with the PET sc an. COMPARISON: CT 1121 thoracic spine, 09/06/2020 normal pelvis. PET/CT None, nuclear medicine bone scan 09/06/2020. FINDINGS: Mediastinal SUV mean is 0.7. Hepatic parenchyma SUV mean is 2.4. SKULL BASE AND NECK: No suspicious radiotracer activity. CHEST, MEDIASTINUM, AND HILAR REGION: No suspicious radiotracer activity. ABDOMEN AND PELVIS: No suspicious radiotracer activity. Prostate gland does not demonstrate focal inc reased FDG activity above back on levels. OSSEOUS STRUCTURES: * Diffuse radiotracer uptake within the T6 vertebral body max SUV 17.6. * No suspicious radiotracer activity within the area of the right iliac bone near the sacroiliac jayna nt seen on prior nuclear medicine bone scan 09/06/[address]: Atherosclerosis of the arterial vasculature including the carotid bifurcations and coronary arteries. Sternotomy wires are present. The heart is enlarged for size. Azygous large fissure noted. The gallbladder surgically absent. Bilateral parapelvic renal cysts are present. Scattered clonic di verticulosis. Urinary bladder has circumferential wall thickening up to 12 mm consistent bladder outl et obstruction.. Bilateral fatty changes to the inguinal canals. IMPRESSION: * PSMA activity diffusely within the vertebral body of T6 concerning for metastatic disease, lesion has increased in size when comparing to prior bone scan on 09/06/2020. No additional foci of metastati c disease as visualized. * No suspicious activity within the prostate gland or pelvis.
== END | disposition home or self-care (01) ==
LOC: RADPETMAIN 12:33
PROVIDERS: ATTEND Radiology Radiation Oncology
DX: C61 Malignant neoplasm of prostate (principal); C77.5 Secondary and unspecified malignant neoplasm of intrapelvic lymph nodes; M89.9 Disorder of bone, unspecified; Z92.3 Personal history of irradiation; Z79.818 Long term (current) use of other agents affecting estrogen receptors and estrogen levels
CPT/HCPCS: 78815; A9596

== ENCOUNTER → 2022-09-05 | Outpatient (CLI) | payer MEDICARE | END | disposition home or self-care (01) | LOC: LABWHC1 10:35 | PROVIDERS: ATTEND Urology | DX: C61 Malignant neoplasm of prostate (principal) | CPT/HCPCS: 36415; 84153 ==

== ENCOUNTER → 2022-11-21 | Outpatient (CLI) | payer MEDICARE | END | disposition home or self-care (01) | LOC: LABWHC1 10:49 | PROVIDERS: ATTEND Urology | DX: C61 Malignant neoplasm of prostate (principal) | CPT/HCPCS: 36415; 84153 ==

== ENCOUNTER → 2023-05-27 | Outpatient (CLI) | payer MEDICARE | END | disposition home or self-care (01) | LOC: LABWHC1 12:17 | PROVIDERS: ATTEND Urology | DX: C61 Malignant neoplasm of prostate (principal) | CPT/HCPCS: 36415; 84153 ==

== ENCOUNTER → 2023-12-02 | Outpatient (CLI) | payer MEDICARE | END | disposition home or self-care (01) | LOC: LABWHC1 10:29 | PROVIDERS: ATTEND Urology | DX: C61 Malignant neoplasm of prostate (principal) | CPT/HCPCS: 36415; 84153 ==

== ENCOUNTER → 2024-06-10 | Outpatient (CLI) | payer MEDICARE | END | disposition home or self-care (01) | LOC: LABWHC1 12:39 | PROVIDERS: ATTEND Urology | DX: C61 Malignant neoplasm of prostate (principal) | CPT/HCPCS: 36415; 84153 ==

== ENCOUNTER → 2024-09-20 | Outpatient (CLI) | payer MEDICARE | END | disposition home or self-care (01) | LOC: LABWHC1 14:27 | PROVIDERS: ATTEND Urology | DX: C61 Malignant neoplasm of prostate (principal) | CPT/HCPCS: 36415; 84153 ==

== ENCOUNTER → 2024-12-17 | Outpatient (CLI) | payer MEDICARE | END | disposition home or self-care (01) | LOC: LABWHC1 10:26 | PROVIDERS: ATTEND Urology | DX: C61 Malignant neoplasm of prostate (principal) | CPT/HCPCS: 36415; 84153 ==

== ENCOUNTER → 2025-01-26 | Outpatient (CLI) | payer MEDICARE | END | disposition home or self-care (01) | LOC: LABWHC1 13:19 | PROVIDERS: ATTEND Urology | DX: C61 Malignant neoplasm of prostate (principal) | CPT/HCPCS: 36415; 84153 ==